=== PATIENT | male | born 1985 | race American Indian/Alaskan Native ===

== ENCOUNTER 2019-01-02 01:29 | Emergency (ER) | payer OTHER ==
[2019-01-02] MEDS ORDERED: oxyCODONE /ACETAMINOPHEN 5-325MG TAB PO ONE (02:58)
--- NOTE | 2019-01-02 03:11 | Emergency Department Report ---
ED ENT HPI - General Chief complaint: Dental/Oral Stated complaint: TOOTHACHE Time Seen by Provider: 01/02/19 02:51 Source: patient Mode of arrival: Ambulatory Limitations: No Limitations - History of Present Illness Initial comments: 33-year-old male with a presents to the hospital complaining of toothache that started today. Pain is constant, rated 10/10 in intensity and not alleviated with Naprosyn. Patient also tried his previously prescribed penicillin VK prescribed in 2017 ( in 2018) without relief. Patient states he has had previous issues with the effected tooth. It has cracked down to the gums and that he was told that he needs it removed and a replacement tooth implanted. Patient did not want to get the procedure done until he could afford the replacement tooth but plans on recontacting his dentist tomorrow. In the meantime he came to the ED because he is having unbearable pain. No reports of fever or facial swelling. - Related Data Previous Rx's Medication Instructions Recorded Last Taken Type HYDROcodone/APAP 5-325 [[place] 1 each PO Q6HR PRN #20 tablet 01/02/19 Unknown Rx 5/325] Penicillin V Potassium 500 mg PO QID #28 tablet 01/02/19 Unknown Rx Allergies Allergy/AdvReac Type Severity Reaction Status Date / Time No Known Allergies Allergy Verified 01/02/19 01:45 ED Dental HPI - General Chief complaint: Dental/Oral Stated complaint: TOOTHACHE Time Seen by Provider: 01/02/19 02:51 Source: patient Mode of arrival: Ambulatory Limitations: No Limitations - Related Data Previous Rx's Medication Instructions Recorded Last Taken Type HYDROcodone/APAP 5-325 [[place] 1 each PO Q6HR PRN #20 tablet 01/02/19 Unknown Rx 5/325] Penicillin V Potassium 500 mg PO QID #28 tablet 01/02/19 Unknown Rx Allergies Allergy/AdvReac Type Severity Reaction Status Date / Time No Known Allergies Allergy Verified 01/02/19 01:45 ED Review of Systems ROS: Stated complaint: TOOTHACHE Other details as noted in HPI Comment: All other systems reviewed and negative ED Past Medical Hx - Past Medical History Previous Medical History?: No - Surgical History Past Surgical History?: Yes Additional Surgical History: tonsil - Social History Smoking Status: Never Smoker Substance Use Type: Marijuana - Medications Home Medications: Home Medications Medication Instructions Recorded Confirmed Last Taken Type HYDROcodone/APAP 5-325 [[place] 1 each PO Q6HR PRN #20 tablet 01/02/19 Unknown Rx 5/325] Penicillin V Potassium 500 mg PO QID #28 tablet 01/02/19 Unknown Rx ED Physical Exam - General Limitations: No Limitations - Other Other exam information: Gen.: No acute distress Head: Atraumatic Eyes: Normal appearance ENT: Moist mucous membranes. Pain area of tooth #3 which has eroded down to the gumline and tender to palpation without swelling. Facial swelling or abscess Neck: Normal appearance, no posterior midline tenderness, no meningismus Chest: Clear to auscultation bilaterally Cardiovascular: Regular rate and rhythm Abdomen: Normal appearance, soft, nontender, no rebound or guarding, normal bowel sounds Back: Normal appearance, nontender Extremity: Full range of motion, normal appearance Neuro: Alert oriented 3, clear speech, no focal motor or sensory deficit Psychiatric: Appropriate Skin: No rash ED Course Vital Signs 01/02/19 01:40 Temperature 98.6 F Pulse Rate 72 Respiratory 16 Rate Blood Pressure 148/99 O2 Sat by Pulse 100 Oximetry ED Medical Decision Making - Medical Decision Making Patient has worsening pain with tenderness. Will cover with antibiotic and pain medication. Outpatient follow-up with dentist encouraged for definitive management. - Differential Diagnosis caries, abscess, fracture Critical Care Time: No Critical care attestation.: If time is entered above; I have spent that time in minutes in the direct care of this critically ill patient, excluding procedure time. ED Disposition Clinical Impression: Pain, dental Disposition: DC- TO HOME OR SELFCARE Is pt being admited?: No Does the pt Need Aspirin: No Condition: Stable Instructions: Toothache (ED) Additional Instructions: Take the medication as prescribed. Continue the Naprosyn as needed for pain. Follow-up with your doctor or with the doctor/clinic provided. Return if symptoms worsen as indicated by your discharge instructions. Prescriptions: HYDROcodone/APAP 5-325 [[place] 5/325] 1 each PO Q6HR PRN #20 tablet PRN Reason: Pain Penicillin V Potassium 500 mg PO QID #28 tablet Referrals: your, dentist [Other] - YADIRA Time of Disposition: 03:19
[2019-01-02 05:10] VITALS: BP 136/69
== END 2019-01-02 05:11 | disposition home or self-care (01) ==
LOC: ED 01:29
DX: K08.89 Other specified disorders of teeth and supporting structures (principal); F12.10 Cannabis abuse, uncomplicated
CPT/HCPCS: 99282

== ENCOUNTER 2019-03-31 23:35 | Emergency (ER) | payer OTHER ==
[2019-04-01] MEDS ORDERED: ACETAMINOPHEN 325 MG/10.15 ML ORAL LIQD UNIT DOSE PO ONE (00:28)
[2019-04-01] MEDS ORDERED: IBUPROFEN 600 MG TAB PO ONE ×2 (00:28→00:31)
[2019-04-01] MEDS ORDERED: ACETAMINOPHEN 325 MG/10.15 ML ORAL LIQD UNIT DOSE ONE (00:31)
[2019-04-01] MEDS ORDERED: HYDROcodone/ACETAMINOPHEN 7.5-325MG TAB PO ONE (03:10)
[2019-04-01] MEDS ORDERED: ONDANSETRON 4 MG ODT TAB PO ONE (03:10)
[2019-04-01] MEDS ORDERED: AMOXICILLIN/K CLAV 875/125MG TAB PO ONE (03:10)
--- NOTE | 2019-04-01 03:15 | Emergency Department Report ---
ED General Adult HPI - General Chief complaint: Dental/Oral Stated complaint: TOOTHACHE Source: patient Mode of arrival: Ambulatory Limitations: No Limitations - History of Present Illness Initial comments: Patient is a 34-year-old male with a history of chronic dental caries and abscesses presents to the ED with acute exacerbation of his chronic dental pain correctors by diffuse left maxillary and mandibular premolar and molar toothaches with swollen gums for the last 2 days, worse in the last 12 hours. Patient denies dizziness, chest pain, shortness of breath, headache, nausea, vomiting, diarrhea, abdominal pain, traumatic injury or vision changes. MD Complaint: left mandibular and maxillary toothache; jaw pain -: Gradual, month(s) (3) Location: mouth Radiation: non-radiation Severity scale (0 -10): 8 Quality: aching, sharp Consistency: constant Improves with: none Worsens with: eating Associated Symptoms: denies other symptoms. denies: confusion, chest pain, cough, diaphoresis, fever/chills, headaches, loss of appetite, malaise, nausea/vomiting, rash, seizure, shortness of breath, syncope, weakness Treatments Prior to Arrival: none - Related Data Previous Rx's Medication Instructions Recorded Last Taken Type HYDROcodone/APAP 5-325 [[place] 1 each PO Q6HR PRN #20 tablet 01/02/19 Unknown Rx 5/325] Penicillin V Potassium 500 mg PO QID #28 tablet 01/02/19 Unknown Rx Acetaminophen/Codeine [Tylenol 1 tab PO Q6H PRN #12 tab 04/01/19 Unknown Rx /Codeine # 3 tab] Clindamycin [Clindamycin CAP] 300 mg PO Q8HR #60 capsule 04/01/19 Unknown Rx Ketorolac [Toradol] 10 mg PO Q8H PRN #20 tablet 04/01/19 Unknown Rx Allergies Allergy/AdvReac Type Severity Reaction Status Date / Time No Known Allergies Allergy Verified 01/02/19 01:45 ED Review of Systems ROS: Stated complaint: TOOTHACHE Other details as noted in HPI Constitutional: denies: chills, fever Eyes: denies: eye pain, eye discharge, vision change ENT: dental pain (left mandibular and maxillary premolar and molar toothaches; swollen gums). denies: ear pain, throat pain Respiratory: denies: cough, shortness of breath, wheezing Cardiovascular: denies: chest pain, palpitations Endocrine: no symptoms reported Gastrointestinal: denies: abdominal pain, nausea, diarrhea Genitourinary: denies: urgency, dysuria Musculoskeletal: denies: back pain, joint swelling, arthralgia Skin: denies: rash, lesions Neurological: denies: headache, weakness, paresthesias Psychiatric: denies: anxiety, depression Hematological/Lymphatic: denies: easy bleeding, easy bruising ED Past Medical Hx - Past Medical History Previous Medical History?: No - Surgical History Past Surgical History?: Yes Additional Surgical History: tonsil - Social History Smoking Status: Current Some Day Smoker Substance Use Type: Marijuana - Medications Home Medications: Home Medications Medication Instructions Recorded Confirmed Last Taken Type HYDROcodone/APAP 5-325 [[place] 1 each PO Q6HR PRN #20 tablet 01/02/19 Unknown Rx 5/325] Penicillin V Potassium 500 mg PO QID #28 tablet 01/02/19 Unknown Rx Acetaminophen/Codeine [Tylenol 1 tab PO Q6H PRN #12 tab 04/01/19 Unknown Rx /Codeine # 3 tab] Clindamycin [Clindamycin CAP] 300 mg PO Q8HR #60 capsule 04/01/19 Unknown Rx Ketorolac [Toradol] 10 mg PO Q8H PRN #20 tablet 04/01/19 Unknown Rx ED Physical Exam - General Limitations: No Limitations General appearance: alert, in no apparent distress - Head Head exam: Present: atraumatic, normocephalic, normal inspection - Eye Eye exam: Present: normal appearance, PERRL, EOMI Pupils: Present: normal accommodation - ENT ENT exam: Present: normal orophraynx, mucous membranes moist, TM's normal bilaterally, normal external ear exam, other (Swollen left mandibular and maxillary gums; tender premolar and molar teeth) - Neck Neck exam: Present: normal inspection, full ROM, lymphadenopathy - Respiratory Respiratory exam: Present: normal lung sounds bilaterally. Absent: respiratory distress, wheezes, rales, chest wall tenderness, accessory muscle use, decreased breath sounds - Cardiovascular Cardiovascular Exam: Present: regular rate, normal rhythm, normal heart sounds. Absent: systolic murmur, diastolic murmur, rubs, gallop - GI/Abdominal GI/Abdominal exam: Present: soft, normal bowel sounds. Absent: tenderness, guarding, rebound, hyperactive bowel sounds, hypoactive bowel sounds, organomegaly - Extremities Exam Extremities exam: Present: normal inspection, full ROM, normal capillary refill - Back Exam Back exam: Present: normal inspection, full ROM. Absent: muscle spasm, paraspinal tenderness, vertebral tenderness - Neurological Exam Neurological exam: Present: alert, oriented X3, CN II-XII intact, normal gait, reflexes normal - Psychiatric Psychiatric exam: Present: normal affect, normal mood - Skin Skin exam: Present: warm, dry, intact, normal color. Absent: rash ED Course Vital Signs 03/31/19 04/01/19 23:39 00:18 Temperature 98.6 F 98.6 F Pulse Rate 93 H 94 H Respiratory 18 18 Rate Blood Pressure 148/105 148/105 O2 Sat by Pulse 98 98 Oximetry ED Medical Decision Making - Medical Decision Making This is a 34-year-old male with a history of chronic recurrent dental caries and dental abscesses who presented to the ED with left mandibular and maxillary gum pain and swelling with premolar and molar toothaches. In the ED [place] patient is alert and oriented 3 and is not in distress. Patient was treated for pain in the ED, and discharged home on oral antibiotics and pain medications and advised follow-up with his dentist in 7-10 days for reevaluation. Patient was advised to return to the ED immediately if symptoms get worse. - Differential Diagnosis dental abscess; dental caries; chronic gingivitis Critical care attestation.: If time is entered above; I have spent that time in minutes in the direct care of this critically ill patient, excluding procedure time. ED Disposition Clinical Impression: Chronic gingivitis, Dental abscess, Dental caries Disposition: TO HOME OR SELFCARE Is pt being admited?: No Does the pt Need Aspirin: No Condition: Stable Instructions: Dental Abscess (ED), Gingivitis (ED), Dental Caries (ED) Additional Instructions: Take medications with food, drink plenty of fluids and follow-up with your dentist in 7-10 days for reevaluation. Return to the ED immediately if symptoms get worse. Prescriptions: Clindamycin [Clindamycin CAP] 300 mg PO Q8HR #60 capsule Ketorolac [Toradol] 10 mg PO Q8H PRN #20 tablet PRN Reason: Pain Acetaminophen/Codeine [Tylenol /Codeine # 3 tab] 1 tab PO Q6H PRN #12 tab PRN Reason: Pain , Severe (7-10) Referrals: [facility] [Outside] - 3-5 Days Time of Disposition: 03:21 Print Language: DJIBOUTIAN
[2019-04-01 06:12] VITALS: BP 164/110
== END 2019-04-01 03:52 | disposition home or self-care (01) ==
LOC: ED 23:35
DX: K04.7 Periapical abscess without sinus (principal); K02.9 Dental caries, unspecified; K05.00 Acute gingivitis, plaque induced; G89.29 Other chronic pain
CPT/HCPCS: Q0162

== ENCOUNTER 2021-08-05 10:32 | Emergency (ER) | payer SELFPAY ==
[2021-08-05 14:19] VITALS: BP 148/97
--- NOTE | 2021-08-05 14:19 | Emergency Department Report ---
ED General Adult HPI - General Chief complaint: High BP Stated complaint: CHEST PAIN/BP Time Seen by Provider: 08/05/21 13:04 Source: patient Mode of arrival: Ambulatory Limitations: No Limitations - History of Present Illness Initial comments: 36-year-old male presents emerged from complaining of hypertension that is currently untreated for several previous history been off medication sometimes due to insurance issues. While at work he complained to his customer facilities supervisor who took his blood pressure and advised him to come to the emergency department. He went to the emergency department on yesterday but improved leery of waiting so decided to elope. He returned to work today customer facilities supervisor would not allow him to work until he had a clearance from the ER in regards to his blood pressure. Currently is asymptomatic asymptomatic states that he feels normal and would like to return to work he has no no no further complaints Severity scale (0 -10): 0 Improves with: none Worsens with: none Associated Symptoms: denies other symptoms. denies: confusion, chest pain, cough, diaphoresis, fever/chills, loss of appetite, malaise, nausea/vomiting, shortness of breath, syncope Treatments Prior to Arrival: none - Related Data Previous Rx's Medication Instructions Recorded Last Taken Type HYDROcodone/APAP 5-325 [[place] 1 each PO Q6HR PRN #20 tablet 01/02/19 Unknown Rx 5/325] Penicillin V Potassium 500 mg PO QID #28 tablet 01/02/19 Unknown Rx Acetaminophen/Codeine [Tylenol 1 tab PO Q6H PRN #12 tab 04/01/19 Unknown Rx /Codeine # 3 tab] Clindamycin [Clindamycin CAP] 300 mg PO Q8HR #60 capsule 04/01/19 Unknown Rx Ketorolac [Toradol] 10 mg PO Q8H PRN #20 tablet 04/01/19 Unknown Rx amLODIPine 10 mg PO DAILY #30 tab 08/05/21 Unknown Rx Allergies Allergy/AdvReac Type Severity Reaction Status Date / Time No Known Allergies Allergy Verified 01/02/19 01:45 ED Review of Systems ROS: Stated complaint: CHEST PAIN/BP Other details as noted in HPI Comment: All other systems reviewed and negative ED Past Medical Hx - Surgical History Additional Surgical History: tonsil - Social History Smoking Status: Current Some Day Smoker Substance Use Type: Marijuana - Medications Home Medications: Home Medications Medication Instructions Recorded Confirmed Last Taken Type HYDROcodone/APAP 5-325 [[place] 1 each PO Q6HR PRN #20 tablet 01/02/19 Unknown Rx 5/325] Penicillin V Potassium 500 mg PO QID #28 tablet 01/02/19 Unknown Rx Acetaminophen/Codeine [Tylenol 1 tab PO Q6H PRN #12 tab 04/01/19 Unknown Rx /Codeine # 3 tab] Clindamycin [Clindamycin CAP] 300 mg PO Q8HR #60 capsule 04/01/19 Unknown Rx Ketorolac [Toradol] 10 mg PO Q8H PRN #20 tablet 04/01/19 Unknown Rx amLODIPine 10 mg PO DAILY #30 tab 08/05/21 Unknown Rx ED Physical Exam - General Limitations: No Limitations General appearance: alert, in no apparent distress - Head Head exam: Present: atraumatic, normocephalic - Eye Eye exam: Present: normal appearance, PERRL, EOMI Pupils: Present: normal accommodation - ENT ENT exam: Present: normal exam, normal orophraynx, mucous membranes moist, TM's normal bilaterally - Neck Neck exam: Present: normal inspection, full ROM - Respiratory Respiratory exam: Present: normal lung sounds bilaterally. Absent: respiratory distress, wheezes, rhonchi, chest wall tenderness, accessory muscle use, decreased breath sounds - Cardiovascular Cardiovascular Exam: Present: regular rate, normal rhythm. Absent: systolic murmur, diastolic murmur, rubs, gallop - GI/Abdominal GI/Abdominal exam: Present: soft, normal bowel sounds - Rectal Rectal exam: Present: deferred - Extremities Exam Extremities exam: Present: normal inspection, normal capillary refill - Back Exam Back exam: Present: normal inspection. Absent: CVA tenderness (R), CVA tenderness (L) - Neurological Exam Neurological exam: Present: alert, oriented X3, CN II-XII intact, normal gait - Psychiatric Psychiatric exam: Present: normal affect, normal mood - Skin Skin exam: Present: warm, dry, intact, normal color. Absent: rash ED Course Vital Signs 08/05/21 12:02 Temperature 98.6 F Pulse Rate 68 Respiratory 16 Rate Blood Pressure 172/118 [Right] O2 Sat by Pulse 100 Oximetry ED Medical Decision Making - Medical Decision Making Presents to the emergency department complaining of high blood pressure. Patient is otherwise asymptomatic without confusion, chest pain, hematuria, or SOB. BP today is 147/98_ Patient is not currently on medication Doubt CV, AMI, heart failure, renal infarction or failure or other end organ damage. Disposition:Discussed with patient their elevated blood pressure and need for close outpatient management of their hypertension. Will provide a prescription for the patients previous antihypertensive medication and arrange for the patient to follow up in a primary care clinic Disposition: Discussed with patient their elevated blood pressure and need for close outpatient management of their hypertension. Will provide a prescription for amlodipine 5mg PO daily and arrange for the patient to follow up in a primary care clinic Critical care attestation.: If time is entered above; I have spent that time in minutes in the direct care of this critically ill patient, excluding procedure time. ED Disposition Clinical Impression: HTN (hypertension) Disposition: HOME / SELF CARE / HOMELESS Is pt being admited?: No Does the pt Need Aspirin: No Condition: Stable Instructions: Hypertension, Adult, [id number], Hypertension (ED) Additional Instructions: You were evaluated emergency department today for your hypertension which is asymptomatic at this time. Your evaluation has shown no medicals conditions requiring emergent intervention at this time, however recommend that you follow- up with your primary care physician or your project management professional soon as possible for further testing as an outpatient. Please schedule an appointment for follow-up with your primary care physician as soon as possible. Return to emergency department if you expands worsening uncontrolled chest pain, shortness of breath, lightheadedness, feeling faint, nausea, vomiting or any other concerning symptoms. Prescriptions: amLODIPine 10 mg PO DAILY #30 tab Referrals: DARREL MERAZ MD [Staff Physician] - 3-5 Days
== END 2021-08-05 14:52 | disposition home or self-care (01) ==
LOC: ED 10:32
DX: I10 Essential (primary) hypertension (principal); F17.200 Nicotine dependence, unspecified, uncomplicated; F12.90 Cannabis use, unspecified, uncomplicated
CPT/HCPCS: 93005; 99282